=== PATIENT | female | born 2000 | race Caucasian/White ===

== ENCOUNTER 2025-03-12 11:15 | Emergency (ER) | payer MEDICAID, SELFPAY ==
[2025-03-12 12:09] LABS: Hematocrit 32.9 % (34.9-44.5); Hemoglobin 10.3 g/dL (12.0-15.5); Mean Corpuscular Hemoglobin 23.0 pg (27.0-33.0); Mean Corpuscular Volume 73.4 fL (81.6-98.3); Platelet Count 253 10x3/uL (150-450); Red Blood Cell (RBC) Count 4.48 10x6/uL (3.90-5.03); White Blood Cell (WBC) Count 4.13 10x3/uL (3.5-10.5)
[2025-03-12 12:54] LABS: ALT (SGPT) 10 U/L (Less than 34); AST (SGOT) 19 U/L (11-34); Albumin 4.2 g/dL (3.1-4.5); Alkaline Phosphatase 61 U/L (40-110); Anion Gap 11 mmol/L (10-20); BUN (Urea Nitrogen) 12 mg/dL (7.0-18.7); Bilirubin, Total 0.3 mg/dL (0.3-1.2); Calc. Creatinine Clearance 0 mL/min (70-130); Calcium 8.7 mg/dL (7.8-10.44); Carbon Dioxide 24 mmol/L (22-29); Chloride 109 mmol/L (98-107); Globulin 3.2 g/dL (2.4-3.5); Glucose 76 mg/dL (70-105); Potassium 4.1 mmol/L (3.5-5.1); Sodium 140 mmol/L (136-145)
[2025-03-12 12:54] LABS: BHCG - Serum Negative (NEGATIVE); Pregs Control Background? CLEAR/WHITE (CLR/WHITE); Pregs Control Bar Appear? YES (CONTROL BAR)
[2025-03-12 13:57] LABS: #Basophils 0.04 10x3/uL (0.0-0.2); #Eosinophils 0.31 10x3/uL (0.0-0.5); #Monocytes 0.27 10x3/uL (0.0-1.1); #Neutrophils 1.71 10x3/uL (1.5-8.4); %Basophils 1.0 % (0.0-2.0); %Eosinophils 7.5 % (0.0-6.0); %Lymphocytes 43.3 % (18.0-47.0); %Monocytes 6.5 % (0.0-10.0); %Neutrophils 41.5 % (40.0-75.0); Anisocytosis MODERATE=16-30 cells (100X) (0-5/hpf); Microcytosis MODERATE=15-30 cells (100X) (0-5/hpf); Ovalocytes MODERATE= 6-15 cells (100X) (0-1/hpf)
[2025-03-12 13:58] LABS: MDiff Complete? YES; Platelet Adequacy Comment Appears Adequate
[2025-03-12] MEDS ORDERED: Tranexamic Acid 1,000 MG/10 ML VIAL ONE (14:37)
[2025-03-12 15:13] LABS: Glucose, Urine (Dipstick) Normal (Negative); Leukocyte Negative (Negative); Protein, Urine (Dipstick) 15 mg/dl (Neg-Trace); Specific Gravity, Urine 1.015 (1.005-1.030)
[2025-03-12 16:34] LABS: Bacteria/HPF Rare-Few HPF (None Seen); CAUTI Indications for Culture Dysuria,urgency,freq; Mucous/LPF 1+ LPF (<2+); RBC/HPF Greater than 50 HPF (0-3); WBC/HPF 0-3 HPF (0-3)
[2025-03-12 16:35] LABS: Urine Culture Reflex No No
[2025-03-13 04:21] LABS: Chlamydia by PCR, Vaginal Swab Not Detected (NotDetected); GC by PCR, Vaginal Swab Not Detected (NotDetected)
== END 2025-03-12 15:20 | disposition home or self-care (01) ==
LOC: CSHERS 11:15
DX: N93.9 Abnormal uterine and vaginal bleeding, unspecified (principal)
CPT/HCPCS: 36415; 76856; 80053; 81001; 83605; 84703; 85025; 86850; 86900; 86901; 87480; 87491; 87510; 87591; 87660; 96365

== ENCOUNTER 2025-08-14 15:43 | Emergency (ER) | payer SELFPAY ==
[2025-08-14 17:17] LABS: #Basophils Less than 0.03 10x3/uL (0.0-0.2); #Eosinophils 0.08 10x3/uL (0.0-0.5); #Monocytes 0.59 10x3/uL (0.0-1.1); #Neutrophils 6.09 10x3/uL (1.5-8.4); %Basophils 0.2 % (0.0-2.0); %Eosinophils 1.0 % (0.0-6.0); %Lymphocytes 17.3 % (18.0-47.0); %Monocytes 7.2 % (0.0-10.0); %Neutrophils 73.9 % (40.0-75.0); Hematocrit 27.9 % (34.9-44.5); Hemoglobin 8.7 g/dL (12.0-15.5); Mean Corpuscular Hemoglobin 22.0 pg (27.0-33.0); Mean Corpuscular Volume 70.5 fL (81.6-98.3); Platelet Count 284 10x3/uL (150-450); Red Blood Cell (RBC) Count 3.96 10x6/uL (3.90-5.03); White Blood Cell (WBC) Count 8.23 10x3/uL (3.5-10.5)
[2025-08-14 17:31] LABS: ALT (SGPT) 17 U/L (Less than 34); AST (SGOT) 57 U/L (11-34); Albumin 3.6 g/dL (3.1-4.5); Alkaline Phosphatase 43 U/L (40-110); Anion Gap 12 mmol/L (10-20); BUN (Urea Nitrogen) 8 mg/dL (7.0-18.7); Bilirubin, Total 0.3 mg/dL (0.3-1.2); Calc. Creatinine Clearance 0 mL/min (70-130); Calcium 9.7 mg/dL (7.8-10.44); Carbon Dioxide 21 mmol/L (22-29); Chloride 107 mmol/L (98-107); Globulin 3.2 g/dL (2.4-3.5); Glucose 81 mg/dL (70-105); Potassium 3.8 mmol/L (3.5-5.1); Sodium 136 mmol/L (136-145)
[2025-08-14 17:38] LABS: INR-International Normal Ratio 1.0; Prothrombin Time 10.7 sec (9.5-12.1)
[2025-08-14] MEDS ORDERED: Famotidine/PF 20 mg/2ml Vial ONE (18:57)
[2025-08-14] MEDS ORDERED: Ondansetron PF 4 MG/2 ML Vial ONE (18:57)
[2025-08-14] MEDS ORDERED: Mag-Al 1200 mg/1200 mg/30 ML UDCUP ONE (19:36)
== END 2025-08-14 19:42 | disposition home or self-care (01) ==
LOC: CSHERS 15:43
DX: K92.0 Hematemesis (principal); D64.9 Anemia, unspecified
CPT/HCPCS: 36415; 71045; 80053; 85025; 85610; 86850; 86900; 86901; 87428; 94760; 96361; 96374; 96375; J1308; J2405